=== PATIENT | female | born 1985 | race Caucasian/White ===

== ENCOUNTER 2019-08-21 07:35 | Outpatient (CLI) | payer BC ==
--- NOTE | 2019-08-21 11:04 | ULT ---
THYROID ULTRASOUND: HISTORY: Thyroid nodule. FINDINGS: Real-time imaging of the right and left lobes of the gland were performed. The right lobe measures 1 .6 x 1.7 x 5.3 cm and the left lobe 1.6 x 1.6 x 5.2 cm. A tiny 2-3 mm cyst is seen in the left lobe. Otherwise, the exam is unremarkable. IMPRESSION: Essentially unremarkable thyroid ultrasound. POS: [facility]
== END 2019-08-21 07:36 | disposition home or self-care (01) ==
LOC: BICULT 07:35
PROVIDERS: ATTEND Internal Medicine Endocrinology, Diabetes & Metabolism
DX: E04.1 Nontoxic single thyroid nodule (principal)
CPT/HCPCS: 76536

== ENCOUNTER 2020-09-10 19:35 | Emergency (ER) | payer BC ==
[2020-09-10] MEDS ORDERED: Clindamycin/D5W 600 mg/50 ml Premix Bag ONE (22:08)
== END 2020-09-10 23:15 | disposition home or self-care (01) ==
LOC: ERS 19:35
DX: L02.412 Cutaneous abscess of left axilla (principal); L03.112 Cellulitis of left axilla
CPT/HCPCS: 96365; J3490

== ENCOUNTER 2022-01-22 14:28 | Outpatient (CLI) | payer BC, OTHER | END 2022-01-22 14:29 | disposition home or self-care (01) | LOC: DTY/OP 14:28 | PROVIDERS: ATTEND Surgery | DX: E66.01 Morbid (severe) obesity due to excess calories (principal) | CPT/HCPCS: 97802 ==

== ENCOUNTER 2022-05-08 09:49 | Outpatient (CLI) | payer BC ==
[2022-05-08 11:00] LABS: #Eosinphils 0.1 10x3/uL (0.0-0.5); #Monocytes 0.4 10x3/uL (0.0-1.1); #Neutrophils 4.2 10x3/uL (1.5-8.4); %Basophils 0.3 % (0.0-2.0); %Eosinophils 1.1 % (0.0-6.0); %Lymphocytes 33.9 % (18.0-47.0); %Monocytes 5.5 % (0.0-10.0); %Neutrophils 58.9 % (40.0-75.0); Hemoglobin 12.1 g/dL (12.0-15.5); Mean Corpuscular HGB CONC 31.5 g/dL (32.0-36.0); Mean Corpuscular Hemoglobin 24.5 pg (27.0-33.0); Mean Corpuscular Volume 77.9 fl (81.6-98.3); Mean Platelet Volume 11.5 fl (7.4-10.4); Platelet Count 258 10x3/uL (150-450); RBC Distribution Width 14.5 % (11.5-14.5); Red Blood Cell (RBC) Count 4.93 10x6/uL (3.90-5.03); White Blood Cell (WBC) Count 7.1 10x3/uL (3.5-10.5)
[2022-05-08 11:17] LABS: Anion Gap 12 mmol/L (10-20); BHCG - Serum Negative (NEGATIVE); BUN (Urea Nitrogen) 13 mg/dL (7.0-18.7); Calc. Creatinine Clearance 0 mL/min (70-130); Calcium 9.3 mg/dL (7.8-10.44); Carbon Dioxide 26 mmol/L (22-29); Chloride 105 mmol/L (98-107); Estimated GFR 112; Glucose 94 mg/dL (70-105); Potassium 4.3 mmol/L (3.5-5.1); Pregs Control Background? CLEAR/WHITE (CLR/WHITE); Pregs Control Bar Appear? YES (CONTROL BAR); Sodium 139 mmol/L (136-145)
== END 2022-05-08 09:50 | disposition home or self-care (01) ==
LOC: LABBT 09:49
PROVIDERS: ATTEND Surgery
DX: Z01.818 Encounter for other preprocedural examination (principal); E66.01 Morbid (severe) obesity due to excess calories
CPT/HCPCS: 80048; 84703; 85025; 93005; 93010

== ENCOUNTER 2022-05-08 10:00 | Inpatient (IN) | payer BC ==
[2022-05-12] MEDS ORDERED: Heparin 5,000 UNITS/ML VIAL ONE (06:47)
[2022-05-12] MEDS ORDERED: Sodium Chloride 0.9% 100 ML ONE (06:47)
[2022-05-12] MEDS ORDERED: CEFAZOLIN 2 GM VIAL ONE (06:47)
[2022-05-12] MEDS ORDERED: Bupivacaine/Epinephrine 0.25% 30 ML VIAL ONE ×2 (06:57→07:42)
[2022-05-12] MEDS ORDERED: fentaNYL PF 100 MCG/2 ML SYRINGE ONE (06:58)
[2022-05-12] MEDS ORDERED: Ketamine 50 MG/ML (10ML VIAL) ONE (06:58)
[2022-05-12] MEDS ORDERED: Dexmedetomidine 200 MCG/2 ML VIAL ONE (06:59)
[2022-05-12] MEDS ORDERED: SUGAMMADEX SODIUM 200 MG/2 ML VIAL ONE (06:59)
[2022-05-12] MEDS ORDERED: Midazolam HCl 2 mg/2 ml Vial ONE ×2 (07:12→07:27)
[2022-05-12] MEDS ORDERED: Lidocaine 2% 6 ML SYR ONE (07:13)
[2022-05-12] MEDS ORDERED: Propofol 500 MG/50 ML VIAL ONE (07:13)
[2022-05-12 07:16] LABS: SARS-CoV-2 NAA Rapid Test Not Detected (NotDetected)
[2022-05-12] MEDS ORDERED: Ondansetron PF 4 MG/2 ML Vial ONE ×2 (07:45→09:57)
[2022-05-12] MEDS ORDERED: Ketorolac Tromethamine 30 MG/ML VIAL ONE (07:45)
[2022-05-12] MEDS ORDERED: Dexamethasone 20 MG/5 ML VIAL ONE (07:45)
[2022-05-12] MEDS ORDERED: ePHEDrine 50 MG/ML VIAL ONE (07:45)
[2022-05-12] MEDS ORDERED: Glycopyrrolate 0.2 MG/ML 5 ML SYRINGE ONE (07:45)
[2022-05-12] MEDS ORDERED: NEOSTIGMINE 3 MG/3 ML SYR 3 MG/3 ML SYRINGE ONE (07:45)
[2022-05-12] MEDS ORDERED: Lidocaine 1% PF 5 ML VIAL ONE (07:45)
[2022-05-12] MEDS ORDERED: Rocuronium Bromide 10 MG/ML (10ML VIAL) ONE (07:45)
[2022-05-12] MEDS ORDERED: PROPOFOL 200 MG/20 ML VIAL ONE (07:45)
[2022-05-12] MEDS ORDERED: PHENYLEPHRINE-NS 100 MCG/ML 10 ML SYRINGE ONE (07:45)
[2022-05-12] MEDS ORDERED: Dextrose 50% Abboject 50 ML SYRINGE SLOW IVP PRN (09:11)
[2022-05-12] MEDS ORDERED: Dextrose 5% in Water 1,000 ML IV PRN (09:11)
[2022-05-12] MEDS ORDERED: Ondansetron PF 4 MG/2 ML Vial IVP PRN ×2 (09:11→09:17)
[2022-05-12] MEDS ORDERED: hydrALAZINE 20 MG/ML VIAL SLOW IVP PRN (09:11)
[2022-05-12] MEDS ORDERED: diphenhydrAMINE 50 MG/ML VIAL IVP PRN ×2 (09:11→09:17)
[2022-05-12] MEDS ORDERED: Promethazine HCl 25 MG/ML VIAL IM PRN ×3 (09:11→09:17)
[2022-05-12] MEDS ORDERED: Ipratropium/Albuterol 3 ML NEB NEB PRN (09:11)
[2022-05-12] MEDS ORDERED: Fentanyl 100 MCG/2 ML VIAL ONE ×2 (09:16→09:38)
[2022-05-12] MEDS ORDERED: diphenhydrAMINE 25 MG CAP PO PRN (09:17)
[2022-05-12] MEDS ORDERED: FENTANYL 500 MCG/10 ML VIAL 2,000 MCG in Sodium Chloride 0.9% 60 ML IV PRN (09:17)
[2022-05-12] MEDS ORDERED: Ondansetron HCl/PF 4 MG/2 ML Vial IVP PRN (09:17)
[2022-05-12] MEDS ORDERED: Naloxone HCl 0.4 mg/ml Vial IV PRN (09:17)
[2022-05-12] MEDS ORDERED: diphenhydrAMINE 50 MG/ML VIAL IM PRN (09:17)
[2022-05-12] MEDS ORDERED: Communication Order-Pharmacy FS SCH (09:30)
[2022-05-12] MEDS ORDERED: Labetalol HCl 100 MG/20 ML VIAL ONE (09:40)
[2022-05-12] MEDS ORDERED: Pantoprazole 40 MG VIAL IVP SCH (09:45)
[2022-05-12] MEDS ORDERED: Promethazine HCl 25 MG/ML VIAL ONE (09:57)
[2022-05-12] MEDS ORDERED: Labetalol HCl 100 MG/20 ML VIAL SLOW IVP SCH (10:00)
[2022-05-12] MEDS: D5 1/2 NS w/20 mEq KCL 1,000 ML IV SCH ×2 (12:16→19:12)
[2022-05-12] MEDS ORDERED: D5 1/2 NS w/20 mEq KCL 1,000 ML ONE (13:08)
[2022-05-12 14:25] VITALS: BMI 40.4
[2022-05-13] MEDS: D5 1/2 NS w/20 mEq KCL 1,000 ML IV SCH ×2 (02:57→07:57)
[2022-05-13] MEDS: Hydrocodone-Acetamin 15 ML UDCUP PO PRN ×2 (06:01→10:11)
[2022-05-13 06:04] LABS: #Lymphocytes 2.5 thou/uL (1.20-3.40); #Monocytes 0.6 thou/uL (0.11-0.59); #Neutrophils 5.8 thou/uL (1.40-6.50); %Basophils 0.2 % (0.0-1.0); %Eosinophils 0.3 % (0.0-10.0); %Lymphocytes 28.1 % (21.0-51.0); %Monocytes 6.2 % (0.0-10.0); %Neutrophils 65.2 % (42.0-75.0); Hemoglobin 12.3 g/dL (12.0-16.0); Mean Corpuscular HGB CONC 31.7 g/dL (32.0-36.0); Mean Corpuscular Hemoglobin 25.8 pg (27.0-31.0); Mean Corpuscular Volume 81.4 fl (78.0-98.0); Mean Platelet Volume 9.7 fL (7.4-10.4); Platelet Count 204 10x3/uL (130-400); RBC Distribution Width 13.5 % (11.5-14.5); Red Blood Cell (RBC) Count 4.76 mill/uL (4.20-5.40); White Blood Cell (WBC) Count 8.9 10x3/uL (4.8-10.8)
[2022-05-13 06:28] LABS: Anion Gap 11 mmol/L (10-20); BUN (Urea Nitrogen) 6 mg/dL (7.0-18.7); Calc. Creatinine Clearance 207 mL/min (70-130); Calcium 9.2 mg/dL (7.8-10.44); Carbon Dioxide 24 mmol/L (22-29); Chloride 105 mmol/L (98-107); Estimated GFR 116; Glucose 92 mg/dL (70-105); Potassium 3.8 mmol/L (3.5-5.1); Sodium 136 mmol/L (136-145)
[2022-05-13] MEDS ORDERED: Pantoprazole 40 MG VIAL IVP SCH (09:00)
[2022-05-13 11:51] VITALS: BP 158/86; TEMP 97.4
== END 2022-05-13 12:45 | disposition home or self-care (01) | DRG 621 ==
LOC: SURG A 05-12 05:46 → SJJU 05-12 14:58
PROVIDERS: ADMIT Surgery; ATTEND Surgery
PROC: 0DB64Z3 Excision of Stomach, Percutaneous Endoscopic Approach, Vertical (ICD-10-PCS; principal; 2022-05-12)
PROC: 8E0W4CZ Robotic Assisted Procedure of Trunk Region, Percutaneous Endoscopic Approach (ICD-10-PCS; 2022-05-12)
DX: E66.01 Morbid (severe) obesity due to excess calories (principal); Z68.41 Body mass index [BMI] 40.0-44.9, adult; I10 Essential (primary) hypertension; Z20.822 Contact with and (suspected) exposure to COVID-19; E78.5 Hyperlipidemia, unspecified
CPT/HCPCS: 36415; 80048; 85025; 88307; 94760; C9113; J1100; J1644; J1650; J1885; J2250; J2405; J2550; J2704; J3010; J3480; J3490; U0002

== ENCOUNTER 2022-06-16 11:40 | Day surgery (SDC) | payer BC ==
[2022-06-16] MEDS ORDERED: Ondansetron PF 4 MG/2 ML Vial IVP PRN (11:54)
[2022-06-16] MEDS ORDERED: Sodium Chloride 0.9% 1,000 ML IV SCH (12:00)
[2022-06-16 12:07] VITALS: BP 121/78; TEMP 98.3
[2022-06-16] MEDS ORDERED: Ondansetron PF 4 MG/2 ML Vial ONE (12:31)
== END 2022-06-16 14:42 | disposition home or self-care (01) ==
LOC: ONC/OP 11:40
PROVIDERS: ATTEND Surgery
DX: E86.0 Dehydration (principal); Z88.1 Allergy status to other antibiotic agents; Z88.2 Allergy status to sulfonamides
CPT/HCPCS: 96361; 96365; 96375; J2405; J3411; J7050

== ENCOUNTER 2022-11-11 07:26 | Outpatient (CLI) | payer BC | END 2022-11-11 07:27 | disposition home or self-care (01) | LOC: RAD 07:26 | PROVIDERS: ATTEND Internal Medicine Rheumatology | DX: R76.12 Nonspecific reaction to cell mediated immunity measurement of gamma interferon antigen response without active tuberculosis (principal) | CPT/HCPCS: 71046 ==